=== PATIENT | male | born 1990 | race Caucasian/White ===

== ENCOUNTER 2017-01-11 19:21 | Emergency (ER) | payer MEDICAID ==
[~2017-01-11] VITALS: Ht 170.2 cm; Wt 66.0 kg
[2017-01-11 22:00] VITALS: BP 110/71
[2017-01-11 22:00] LABS: CLARITY URINE TURBID (CLEAR); COLOR URINE DARK YELLOW (YELLOW); GLUCOSE URINE NEGATIVE (NEGATIVE); KETONES URINE TRACE (NEGATIVE); LEUKOCYTE ESTERASE URINE NEGATIVE (NEGATIVE); NITRITE URINE NEGATIVE (NEGATIVE); OCCULT BLOOD URINE NEGATIVE (NEGATIVE); PROTEIN URINE 2+ (NEGATIVE); SPECIFIC GRAVITY URINE 1.028 (1.005-1.030)
== END 2017-01-11 22:35 | disposition left against medical advice (07) ==
LOC: ER 21:40
DX: M54.5 Low back pain (principal); R11.2 Nausea with vomiting, unspecified; F17.200 Nicotine dependence, unspecified, uncomplicated
CPT/HCPCS: 81001; 87086; 99284; Z7610

== ENCOUNTER 2018-03-12 17:52 | Emergency (ER) | payer MEDICAID, MEDICARE ==
[~2018-03-12] VITALS: Ht 167.6 cm; Wt 69.0 kg
[2018-03-12] MEDS ORDERED: SODIUM CHLORIDE 0.9% 1,000 ML IV ONE (19:22)
[2018-03-12] MEDS ORDERED: ACETAMINOPHEN 325MG TABLET PO STA (19:22)
[2018-03-12] MEDS ORDERED: KETOROLAC 15MG/ML VIAL IV ONE (19:30)
[2018-03-12] MEDS ORDERED: PIPERACILLIN/TAZ 3.375G PREMIX 50 ML IV ONE (19:30)
[2018-03-12] MEDS ORDERED: VANCOMYCIN 1 G PREMIX 200 ML IV ONE (19:30)
[2018-03-12 20:24] LABS: CHLORIDE 94 mEq/L (98-107); HEMATOCRIT. 29.8 % (42.0-52.0); HEMOGLOBIN. 10.1 g/dL (14.0-18.0); INR 1.2; MEAN CORPUSCULAR HEMOGLOBIN 30.2 pg (28.0-32.0); MEAN CORPUSCULAR VOLUME 89.5 fL (80.0-94.0); PLATELET 281 x1000/uL (130-400); PROTHROMBIN TIME 12.4 sec (9.1-11.1); RED BLOOD CELL COUNT 3.33 mill/uL (4.7-6.1); RED CELL DISTRIBUTION WIDTH 12.6 % (11.6-14.6)
[2018-03-12 20:53] LABS: CLARITY URINE CLEAR (CLEAR); COLOR URINE YELLOW (YELLOW); KETONES URINE NEGATIVE (NEGATIVE); LEUKOCYTE ESTERASE URINE NEGATIVE (NEGATIVE); NITRITE URINE NEGATIVE (NEGATIVE); OCCULT BLOOD URINE NEGATIVE (NEGATIVE); PH URINE 6.5 (4.5-8.0); PROTEIN URINE 1+ (NEGATIVE); SPECIFIC GRAVITY URINE 1.015 (1.005-1.030)
[2018-03-12] MEDS ORDERED: SODIUM CHLORIDE 0.9% 1000ML BAG (SEPSIS BOLUS) IV ONE (21:15)
[2018-03-12 21:44] LABS: PLATELET ESTIMATE NORMAL
[2018-03-12 22:33] LABS: BG BASE EXCESS -0.7 mmol/L (-2.0-2.0); BG CARBOXYHEMOGLOBIN 0.3 % (0.5-1.5); BG DEOXYHEMOGLOBIN 2.4 % (0.0-5.0); BG FRACTION INSPIRED OXYGEN 21; BG HCO3 ACT 23.1 mmol/L (22.0-26.0); BG METHEMOGLOBIN 0.3 % (0.0-1.5); BG OXYGEN SATURATION 97.6 % (92.0-98.5); BG PCO2 34.7 mmHg (35.0-45.0); BG PH 7.441 (7.350-7.450); BG PO2 109.3 mmHg (75.0-100.0); BG SAMPLE SITE RIGHT RADIAL; BG TOTAL HEMOGLOBIN 9.1 g/dL (12.0-18.0); BG VENT MODE ROOM AIR
[2018-03-12] MEDS ORDERED: DOXYCYCLINE HYCLATE 100MG CAPSULE PO ONE (22:45)
[2018-03-12 23:49] VITALS: BP 99/57
== END 2018-03-12 23:52 | disposition home or self-care (01) ==
LOC: ER 17:52
DX: R10.9 Unspecified abdominal pain (principal); R11.2 Nausea with vomiting, unspecified; R50.9 Fever, unspecified
CPT/HCPCS: 36415; 36600; 71045; 74176; 80053; 81003; 82375; 82805; 83605; 85025; 85610; 87040; 87804; 93005; 96361; 96365; 96368; 96375; 99284; J1885; J2543; J3370; J7030

== ENCOUNTER 2018-03-20 04:11 | Inpatient (IN) | payer MEDICARE ==
[~2018-03-20] VITALS: Ht 167.6 cm; Wt 60.5 kg
[2018-03-20 06:09] LABS: HEMATOCRIT. 27.6 % (42.0-52.0); HEMOGLOBIN. 9.5 g/dL (14.0-18.0); MEAN CORPUSCULAR HEMOGLOBIN 30.5 pg (28.0-32.0); MEAN CORPUSCULAR VOLUME 88.8 fL (80.0-94.0); MEAN PLATELET VOLUME 9.5 fl (7.4-10.4); PLATELET 263 x1000/uL (130-400); RED BLOOD CELL COUNT 3.11 mill/uL (4.7-6.1); RED CELL DISTRIBUTION WIDTH 12.8 % (11.6-14.6)
[2018-03-20 06:15] LABS: CHLORIDE 100 mEq/L (98-107)
[2018-03-20] MEDS ORDERED: SODIUM CHLORIDE 0.9% 1000ML BAG (SEPSIS BOLUS) IV ONE (06:45)
[2018-03-20] MEDS ORDERED: PIPERACILLIN/TAZ 3.375G PREMIX 50 ML IV ONE (06:45)
[2018-03-20] MEDS ORDERED: VANCOMYCIN 1 G PREMIX 200 ML IV ONE (06:45)
[2018-03-20 07:05] LABS: ETHANOL BLOOD < 10 mg/dL
[2018-03-20] MEDS ORDERED: IBUPROFEN 400MG TABLET PO ONE (07:30)
[2018-03-20 07:38] LABS: CLARITY URINE CLEAR (CLEAR); COLOR URINE YELLOW (YELLOW); KETONES URINE NEGATIVE (NEGATIVE); LEUKOCYTE ESTERASE URINE NEGATIVE (NEGATIVE); NITRITE URINE NEGATIVE (NEGATIVE); OCCULT BLOOD URINE NEGATIVE (NEGATIVE); PROTEIN URINE 1+ (NEGATIVE); SPECIFIC GRAVITY URINE 1.018 (1.005-1.030)
[2018-03-20 07:42] LABS: PLATELET ESTIMATE NORMAL
[2018-03-20 07:48] LABS: CREATINE KINASE 151 IU/L (39-308)
[2018-03-20 08:16] LABS: *AMPHETAMINES SCREEN URINE PRESUMTIVE POSITIVE (NEGATIVE); *BARBITURATES SCREEN URINE NEGATIVE (NEGATIVE)
[2018-03-20 08:17] LABS: *BENZODIAZEPINES SCREEN URINE NEGATIVE (NEGATIVE); *COCAINE SCREEN URINE NEGATIVE (NEGATIVE); CANNABINOID URINE SCREEN NEGATIVE (NEGATIVE); METHADONE URINE SCREEN NEGATIVE (NEGATIVE); OPIATES URINE SCREEN NEGATIVE (NEGATIVE); PHENCYCLIDINE URINE SCREEN NEGATIVE (NEGATIVE)
[2018-03-20] MEDS ORDERED: ONDANSETRON HCL 4MG/2ML INJ IV PRN (12:15)
[2018-03-20] MEDS ORDERED: DIPHENHYDRAMINE 50MG/ML VIAL IV PRN (12:15)
[2018-03-20] MEDS ORDERED: DOCUSATE SODIUM 100MG CAPSULE PO PRN (12:15)
[2018-03-20] MEDS ORDERED: ACETAMINOPHEN 650MG SUPP PR PRN (12:15)
[2018-03-20] MEDS ORDERED: IPRATROPIUM/ALBUTEROL 0.5-3(2.5)MG/3ML NEB INH PRN (12:15)
[2018-03-20] MEDS ORDERED: MAGNESIUM/ALUMINUM HYDROXIDE/SIMETHICONE 30ML UDC PO PRN (12:15)
[2018-03-20] MEDS ORDERED: ACETAMINOPHEN 325MG TABLET PO PRN (12:15)
[2018-03-20] MEDS ORDERED: NA PHOS,M-B/NA PHOS,DI-BA ENEMA 118ML PR PRN (12:15)
[2018-03-20] MEDS ORDERED: HYDROCODONE/ACETAMINOPHEN 5/325MG TABLET PO PRN (12:15)
[2018-03-20] MEDS ORDERED: PIPERACILLIN/TAZ 3.375G PREMIX 50 ML IV SCH ×2 (12:15→16:00)
[2018-03-20] MEDS ORDERED: CLONIDINE 0.1MG TABLET PO PRN (12:15)
[2018-03-20 14:30] VITALS: BP 92/43
[2018-03-20] MEDS ORDERED: POTASSIUM CHLORIDE 20MEQ TABLET SR PO SCH (15:00)
[2018-03-20] MEDS ORDERED: AZITHROMYCIN 250 MG TABLET PO SCH (15:00)
[2018-03-20] MEDS: PANTOPRAZOLE SODIUM 40 MG/VIAL IV SCH (15:35)
[2018-03-20] MEDS: ENOXAPARIN 40MG/0.4ML SYR SUBCUT SCH (15:35)
[2018-03-20 16:00] VITALS: BP 90/63
[2018-03-20] MEDS ORDERED: SODIUM CHLORIDE 0.9% 1,000 ML IV ONE ×2 (16:30)
[2018-03-20 17:12] LABS: BG BASE EXCESS -1.3 mmol/L (-2.0-2.0); BG CARBOXYHEMOGLOBIN 0.3 % (0.5-1.5); BG DEOXYHEMOGLOBIN 2.3 % (0.0-5.0); BG FRACTION INSPIRED OXYGEN 28; BG HCO3 ACT 23.1 mmol/L (22.0-26.0); BG METHEMOGLOBIN 0.5 % (0.0-1.5); BG OXYGEN SATURATION 97.7 % (92.0-98.5); BG OXYHEMOGLOBIN 96.9 % (94.0-97.0); BG PCO2 37.3 mmHg (35.0-45.0); BG PO2 130.1 mmHg (75.0-100.0); BG SAMPLE SITE LEFT BRACHIAL; BG TOTAL HEMOGLOBIN 8.7 g/dL (12.0-18.0); BG VENT MODE NASAL CANNULA
[2018-03-20 18:11] VITALS: BP 91/56
[2018-03-20] MEDS ORDERED: AZITHROMYCIN 500 MG in DEXT 5% WATER 250 ML IV SCH (18:30)
[2018-03-20] MEDS: SODIUM CHLORIDE 0.45% 1,000 ML IV SCH (19:27)
[2018-03-20 20:00] VITALS: BP 102/64
[2018-03-20] MEDS: CEFTRIAXONE 1 G PREMIX 50 ML IV SCH (20:00)
[2018-03-20] MEDS ORDERED: CEFTRIAXONE 1,000 MG in DEXTROSE 5% WATER 50 ML IV SCH (20:00)
[2018-03-20] MEDS: AZITHROMYCIN 500 MG in DEXT 5% WATER 250 ML IV SCH (21:00)
[2018-03-20] MEDS: TRAMADOL 50MG TABLET PO PRN (21:57)
[2018-03-20] MEDS ORDERED: VANCOMYCIN 1500MG in DEXTROSE 5% WATER 250ML IV SCH (22:00)
[2018-03-20] MEDS: GUAIFENESIN 200MG/10ML SUGAR FREE UDC PO PRN (22:35)
[2018-03-20] MEDS: LORAZEPAM 0.5MG TABLET PO PRN (22:35)
[2018-03-21] VITALS (7 sets, daily range): BP systolic 85–110; BP diastolic 40–69
[2018-03-21] MEDS: IPRATROPIUM/ALBUTEROL 0.5-3(2.5)MG/3ML NEB INH SCH ×4 (01:00→21:51)
[2018-03-21] MEDS: LORAZEPAM 0.5MG TABLET PO PRN (03:25)
[2018-03-21] MEDS: GUAIFENESIN 200MG/10ML SUGAR FREE UDC PO PRN (03:25)
[2018-03-21] MEDS: TRAMADOL 50MG TABLET PO PRN (03:26)
[2018-03-21] MEDS ORDERED: AZITHROMYCIN 500 MG in DEXT 5% WATER 250 ML IV SCH (06:00)
[2018-03-21] MEDS: PANTOPRAZOLE SODIUM 40 MG/VIAL IV SCH (08:17)
[2018-03-21] MEDS: IBUPROFEN 200MG TABLET PO PRN ×2 (08:18→21:26)
[2018-03-21] MEDS: ENOXAPARIN 40MG/0.4ML SYR SUBCUT SCH (08:18)
[2018-03-21 09:50] LABS: BASOPHILS % 0.3 % (0.0-2.0); EOSINOPHILS % 0.4 % (0.0-5.0); HEMATOCRIT. 24.6 % (42.0-52.0); HEMOGLOBIN. 8.3 g/dL (14.0-18.0); LYMPHOCYTES % 10.3 % (20.0-50.0); MEAN CORPUSCULAR HEMOGLOBIN 30.3 pg (28.0-32.0); MEAN CORPUSCULAR VOLUME 89.3 fL (80.0-94.0); MEAN PLATELET VOLUME 10.1 fl (7.4-10.4); MONOCYTES % 14.3 % (2.0-8.0); NEUTROPHILS % 74.7 % (40.0-76.0); PLATELET 229 x1000/uL (130-400); RED BLOOD CELL COUNT 2.75 mill/uL (4.7-6.1); RED CELL DISTRIBUTION WIDTH 12.7 % (11.6-14.6)
[2018-03-21 10:22] LABS: CHLORIDE 105 mEq/L (98-107)
[2018-03-21 10:31] LABS: LDL CHOLESTEROL 52 mg/dL (5-100)
[2018-03-21 10:32] LABS: HDL CHOLESTEROL 22 mg/dL (40-59); T4 FREE 1.05 ng/dL (0.76-1.46)
[2018-03-21] MEDS: SODIUM CHLORIDE 0.45% 1,000 ML IV SCH (14:53)
[2018-03-21] MEDS: CEFTRIAXONE 1 G PREMIX 50 ML IV SCH (21:09)
[2018-03-21] MEDS: AZITHROMYCIN 500 MG in DEXT 5% WATER 250 ML IV SCH (21:56)
[2018-03-22 00:21] VITALS: BP 93/41
[2018-03-22] MEDS: IPRATROPIUM/ALBUTEROL 0.5-3(2.5)MG/3ML NEB INH SCH ×2 (03:52→22:15)
[2018-03-22] MEDS: SODIUM CHLORIDE 0.45% 1,000 ML IV SCH (06:18)
[2018-03-22 09:24] LABS: HEMATOCRIT. 25.8 % (42.0-52.0); HEMOGLOBIN. 8.7 g/dL (14.0-18.0); MEAN CORPUSCULAR HEMOGLOBIN 29.9 pg (28.0-32.0); MEAN CORPUSCULAR VOLUME 88.5 fL (80.0-94.0); MEAN PLATELET VOLUME 10.3 fl (7.4-10.4); PLATELET 255 x1000/uL (130-400); RED BLOOD CELL COUNT 2.91 mill/uL (4.7-6.1); RED CELL DISTRIBUTION WIDTH 12.8 % (11.6-14.6)
[2018-03-22] MEDS: PANTOPRAZOLE SODIUM 40 MG/VIAL IV SCH (09:27)
[2018-03-22] MEDS: ENOXAPARIN 40MG/0.4ML SYR SUBCUT SCH ×2 (09:27→09:36)
[2018-03-22 09:37] LABS: CHLORIDE 102 mEq/L (98-107)
[2018-03-22 10:57] VITALS: BP 107/55
[2018-03-22 14:19] LABS: HIV 1 ABS Positive (Negative); HIV 2 ABS Negative (Negative); HIV SCREEN 4G Reactive (Non Reactive); INTERPRETATION HIV-1 Positive (.)
[2018-03-22 14:53] LABS: PLATELET ESTIMATE NORMAL
[2018-03-22 15:30] VITALS: BP 94/42
[2018-03-22] MEDS: IBUPROFEN 200MG TABLET PO PRN (15:50)
[2018-03-22] MEDS ORDERED: FLUCONAZOLE 400MG/200ML BAG 200 ML IV SCH (16:30)
[2018-03-22] MEDS: PREDNISONE 20MG TABLET PO SCH (17:56)
[2018-03-22] MEDS: SODIUM CHLORIDE 0.9% 1,000 ML IV SCH (17:57)
[2018-03-22] MEDS ORDERED: WATER IV SCH (18:00)
[2018-03-22] MEDS ORDERED: DEXT 5% IV SCH (18:00)
[2018-03-22] MEDS ORDERED: SULFAMETHOXAZOLE IV SCH (18:00)
[2018-03-22] MEDS ORDERED: TRIMETHOPRIM IV SCH (18:00)
[2018-03-22 20:00] VITALS: BP 95/55
[2018-03-22] MEDS: CEFTRIAXONE 1 G PREMIX 50 ML IV SCH (20:42)
[2018-03-22] MEDS: AZITHROMYCIN 500 MG in DEXT 5% WATER 250 ML IV SCH (21:45)
[2018-03-22 23:58] VITALS: BP 92/49
[2018-03-23] MEDS: IPRATROPIUM/ALBUTEROL 0.5-3(2.5)MG/3ML NEB INH SCH ×3 (02:41→21:00)
[2018-03-23] MEDS: SODIUM CHLORIDE 0.9% 1,000 ML IV SCH ×2 (03:04→14:01)
[2018-03-23 04:15] VITALS: BP 98/52
[2018-03-23 07:41] LABS: HEMATOCRIT. 27.2 % (42.0-52.0); HEMOGLOBIN. 9.1 g/dL (14.0-18.0); MEAN CORPUSCULAR HEMOGLOBIN 29.7 pg (28.0-32.0); MEAN CORPUSCULAR VOLUME 88.4 fL (80.0-94.0); MEAN PLATELET VOLUME 10.4 fl (7.4-10.4); PLATELET 274 x1000/uL (130-400); RED BLOOD CELL COUNT 3.07 mill/uL (4.7-6.1)
[2018-03-23 07:52] LABS: CHLORIDE 107 mEq/L (98-107)
[2018-03-23 08:00] VITALS: BP 89/48
[2018-03-23] MEDS: PREDNISONE 20MG TABLET PO SCH ×2 (08:32→18:14)
[2018-03-23] MEDS: PANTOPRAZOLE SODIUM 40 MG/VIAL IV SCH (08:32)
[2018-03-23] MEDS: WATER IV SCH ×2 (09:30→18:14)
[2018-03-23] MEDS: TRIMETHOPRIM IV SCH ×2 (09:30→18:14)
[2018-03-23] MEDS: DEXT 5% IV SCH ×2 (09:30→18:14)
[2018-03-23] MEDS: SULFAMETHOXAZOLE IV SCH ×2 (09:30→18:14)
[2018-03-23 12:00] VITALS: BP 95/49
[2018-03-23 15:45] LABS: PLATELET ESTIMATE NORMAL
[2018-03-23 16:15] VITALS: BP 88/43
[2018-03-23] MEDS: CEFTRIAXONE 1 G PREMIX 50 ML IV SCH (21:14)
[2018-03-24] VITALS: BP 99/88
[2018-03-24] MEDS: SODIUM CHLORIDE 0.9% 1,000 ML IV SCH
[2018-03-24] MEDS: DEXT 5%/0.45% NACL KCL 20MEQ/L 1,000 ML IV SCH ×3 (01:00→15:43)
[2018-03-24] MEDS: IPRATROPIUM/ALBUTEROL 0.5-3(2.5)MG/3ML NEB INH SCH ×4 (02:08→20:40)
[2018-03-24] MEDS: WATER IV SCH ×3 (02:58→18:19)
[2018-03-24] MEDS: TRIMETHOPRIM IV SCH ×3 (02:58→18:19)
[2018-03-24] MEDS: SULFAMETHOXAZOLE IV SCH ×3 (02:58→18:19)
[2018-03-24] MEDS: DEXT 5% IV SCH ×3 (02:58→18:19)
[2018-03-24 04:00] VITALS: BP 123/52
[2018-03-24 05:54] LABS: HEMATOCRIT 25.8 % (42.0-52.0); HEMOGLOBIN 8.7 g/dL (14.0-18.0); MEAN CORPUSCULAR HEMOGLOBIN 29.9 pg (28.0-32.0); MEAN CORPUSCULAR VOLUME 88.9 fL (80.0-94.0); PLATELET 295 x1000/uL (130-400); RED CELL DISTRIBUTION WIDTH 12.9 % (11.6-14.6)
[2018-03-24 06:16] LABS: CHLORIDE 108 mEq/L (98-107)
[2018-03-24 08:00] VITALS: BP 102/58
[2018-03-24] MEDS ORDERED: EPINEPHRINE 1:1000 1 MG/ML AMP ONE (08:34)
[2018-03-24] MEDS ORDERED: TETRACAINE/BENZOCAINE/BUTAMBEN 20 GM SPRAY MM ONE (08:36)
[2018-03-24 09:06] LABS: ABSOLUTE LYMPHOCYTES 0.3 x10E3/uL (0.7-3.1); ABSOLUTE MONOCYTES 0.5 x10E3/uL (0.1-0.9); BASOPHILS 0 % (Not Estab.); HEMATOCRIT 26.2 % (37.5-51.0); HEMOGLOBIN 8.8 g/dL (13.0-17.7); IMMATURE GRANULOCYTES 1 % (Not Estab.); LYMPHOCYTES 11 % (Not Estab.); MEAN CORPUSCULAR HEMOGLOBIN 29.7 pg (26.6-33.0); MEAN CORPUSCULAR HGB CONC. 33.6 g/dL (31.5-35.7); MEAN CORPUSCULAR VOLUME 89 fL (79-97); MONOCYTES 19 % (Not Estab.); NEUTROPHILS 69 % (Not Estab.); PLATELETS 302 x10E3/uL (150-379); RBC 2.96 x10E6/uL (4.14-5.80); RED CELL DISTRIBUTION WIDTH 13.2 % (12.3-15.4); WBC 2.9 x10E3/uL (3.4-10.8)
[2018-03-24] MEDS ORDERED: NEOSTIGMINE METHYLSULFATE 1MG/ML 10 ML VIAL ONE (09:40)
[2018-03-24] MEDS ORDERED: FENTANYL CITRATE/PF 50MCG/ML 2ML VIAL ONE (09:40)
[2018-03-24] MEDS ORDERED: MIDAZOLAM HCL 2 MG/2 ML VIAL ONE (09:40)
[2018-03-24] MEDS ORDERED: PROPOFOL 200MG/20ML VIAL IV ONE ×3 (09:40→10:05)
[2018-03-24] MEDS ORDERED: GLYCOPYRROLATE 0.2 MG/ML 2ML VIAL ONE (09:40)
[2018-03-24] MEDS ORDERED: ROCURONIUM BROMIDE 10MG/ML VIAL 5ML IV ONE (09:40)
[2018-03-24] MEDS ORDERED: PHENYLEPHRINE HCL 10 MG/ML 1ML (IV VIAL) IV ONE (09:41)
[2018-03-24] MEDS ORDERED: SODIUM CHLORIDE 0.9% 10ML VIAL ONE (09:41)
[2018-03-24] MEDS ORDERED: METOCLOPRAMIDE HCL 10MG/2ML VIAL ONE (09:41)
[2018-03-24] MEDS ORDERED: LIDOCAINE HCL/PF 1% 10 MG/ML 5ML VIAL ONE (09:41)
[2018-03-24] MEDS ORDERED: CEFAZOLIN SODIUM 1000MG/VIAL ONE (09:41)
[2018-03-24] MEDS ORDERED: SUCCINYLCHOLINE CHLORIDE 200MG/10ML IV ONE (09:41)
[2018-03-24] MEDS ORDERED: ONDANSETRON HCL 4MG/2ML INJ ONE (09:41)
[2018-03-24] MEDS ORDERED: EPHEDRINE SULFATE 50MG/ML VIAL ONE (09:41)
[2018-03-24 12:00] VITALS: BP 98/57
[2018-03-24] MEDS: PANTOPRAZOLE SODIUM 40 MG/VIAL IV SCH (12:33)
[2018-03-24] MEDS: PREDNISONE 20MG TABLET PO SCH ×2 (12:33→18:19)
[2018-03-24] MEDS: ENOXAPARIN 40MG/0.4ML SYR SUBCUT SCH (12:34)
[2018-03-24 14:20] LABS: % CD 3 POS. LYMPHOCYTES 63.7 % (57.5-86.2); % CD 4 POS. LYMPHOCYTES 2.1 % (30.8-58.5); % CD 8 POS. LYMPH 58.8 % (12.0-35.5); ABSOLUTE CD 3 191 /uL (622-2402); ABSOLUTE CD 4 HELPER 6 /uL (359-1519); ABSOLUTE CD 8 SUPPRESSOR 176 /uL (109-897); CD4/CD8 RATIO 0.04 (0.92-3.72)
[2018-03-24 16:00] VITALS: BP 90/44
[2018-03-24] MEDS ORDERED: LORAZEPAM 0.5MG TABLET PO PRN (16:15)
[2018-03-24] MEDS: CEFTRIAXONE 1 G PREMIX 50 ML IV SCH (20:00)
[2018-03-24 20:30] VITALS: BP 103/49
[2018-03-25] VITALS: BP 107/52
[2018-03-25] MEDS: IPRATROPIUM/ALBUTEROL 0.5-3(2.5)MG/3ML NEB INH SCH ×3 (02:30→11:58)
[2018-03-25] MEDS: DEXT 5%/0.45% NACL KCL 20MEQ/L 1,000 ML IV SCH ×3 (06:00→20:22)
[2018-03-25 08:00] VITALS: BP 110/54
[2018-03-25] MEDS: SULFAMETHOXAZOLE IV SCH ×4 (08:17→16:58)
[2018-03-25] MEDS: TRIMETHOPRIM IV SCH ×4 (08:17→16:58)
[2018-03-25] MEDS: WATER IV SCH ×4 (08:17→16:58)
[2018-03-25] MEDS: DEXT 5% IV SCH ×4 (08:17→16:58)
[2018-03-25] MEDS: PREDNISONE 20MG TABLET PO SCH ×2 (08:18→16:58)
[2018-03-25] MEDS: FAMOTIDINE 20MG/2ML VIAL IV SCH ×2 (08:18→20:23)
[2018-03-25] MEDS: ENOXAPARIN 40MG/0.4ML SYR SUBCUT SCH (08:21)
[2018-03-25] MEDS: GUAIFENESIN 200MG/10ML SUGAR FREE UDC PO PRN (09:34)
[2018-03-25 12:00] VITALS: BP 110/56
[2018-03-25 15:19] LABS: HEMATOCRIT 25.9 % (42.0-52.0); HEMOGLOBIN 8.8 g/dL (14.0-18.0); MEAN CORPUSCULAR HEMOGLOBIN 30.1 pg (28.0-32.0); MEAN CORPUSCULAR VOLUME 87.9 fL (80.0-94.0); PLATELET 335 x1000/uL (130-400); RED BLOOD CELL COUNT 2.94 mill/uL (4.7-6.1); RED CELL DISTRIBUTION WIDTH 12.8 % (11.6-14.6)
[2018-03-25 15:27] LABS: CHLORIDE 107 mEq/L (98-107)
[2018-03-25 15:53] LABS: HEPATITIS B SURFACE ANTIGEN NEGATIVE
[2018-03-25 16:00] VITALS: BP 101/43
[2018-03-25 20:00] VITALS: BP 105/55
[2018-03-25] MEDS: CEFTRIAXONE 1 G PREMIX 50 ML IV SCH (20:22)
[2018-03-25] MEDS: TEMAZEPAM 15MG CAPSULE PO PRN (22:09)
[2018-03-26] VITALS: BP 100/57
[2018-03-26] MEDS: SULFAMETHOXAZOLE IV SCH ×3 (01:15→17:35)
[2018-03-26] MEDS: TRIMETHOPRIM IV SCH ×3 (01:15→17:35)
[2018-03-26] MEDS: WATER IV SCH ×3 (01:15→17:35)
[2018-03-26] MEDS: DEXT 5% IV SCH ×3 (01:15→17:35)
[2018-03-26] MEDS: IPRATROPIUM/ALBUTEROL 0.5-3(2.5)MG/3ML NEB INH SCH ×5 (01:52→20:19)
[2018-03-26 04:00] VITALS: BP 102/50
[2018-03-26 07:09] LABS: HEMATOCRIT 25.9 % (42.0-52.0); HEMOGLOBIN 8.8 g/dL (14.0-18.0); MEAN CORPUSCULAR VOLUME 88.7 fL (80.0-94.0); PLATELET 322 x1000/uL (130-400); RED BLOOD CELL COUNT 2.93 mill/uL (4.7-6.1); RED CELL DISTRIBUTION WIDTH 13.1 % (11.6-14.6)
[2018-03-26 07:20] LABS: CHLORIDE 107 mEq/L (98-107)
[2018-03-26 08:00] VITALS: BP 107/58
[2018-03-26] MEDS: ENOXAPARIN 40MG/0.4ML SYR SUBCUT SCH ×2 (09:00→09:16)
[2018-03-26] MEDS: PREDNISONE 20MG TABLET PO SCH ×2 (09:09→17:34)
[2018-03-26] MEDS: FAMOTIDINE 20MG/2ML VIAL IV SCH ×2 (09:10→20:58)
[2018-03-26 11:53] VITALS: BP 101/51
[2018-03-26 16:00] VITALS: BP 100/50
[2018-03-26 20:02] VITALS: BP 104/53
[2018-03-26] MEDS: CEFTRIAXONE 1 G PREMIX 50 ML IV SCH (20:58)
[2018-03-26] MEDS: TEMAZEPAM 15MG CAPSULE PO PRN (21:02)
[2018-03-27 00:39] VITALS: BP 112/63
[2018-03-27] MEDS: DEXT 5% IV SCH ×2 (01:05→10:43)
[2018-03-27] MEDS: WATER IV SCH ×2 (01:05→10:43)
[2018-03-27] MEDS: SULFAMETHOXAZOLE IV SCH ×2 (01:05→10:43)
[2018-03-27] MEDS: DEXT 5%/0.45% NACL KCL 20MEQ/L 1,000 ML IV SCH (01:05)
[2018-03-27] MEDS: TRIMETHOPRIM IV SCH ×2 (01:05→10:43)
[2018-03-27 04:00] VITALS: BP 110/52
[2018-03-27 07:47] VITALS: BP 105/56
[2018-03-27] MEDS: FAMOTIDINE 20MG/2ML VIAL IV SCH (08:19)
[2018-03-27] MEDS: PREDNISONE 20MG TABLET PO SCH (08:19)
[2018-03-27] MEDS: IPRATROPIUM/ALBUTEROL 0.5-3(2.5)MG/3ML NEB INH SCH (10:46)
[2018-03-27 12:00] VITALS: BP 118/58
[2018-03-27] MEDS ORDERED: SULFAMETHOXAZOLE/TRIMETHOPRIM 800/160MG TABLET PO SCH (22:00)
[2018-03-28] MEDS ORDERED: PREDNISONE 20MG TABLET PO SCH (07:50)
[2018-04-02] MEDS ORDERED: PREDNISONE 20MG TABLET PO SCH (09:00)
== END 2018-03-27 17:33 | disposition left against medical advice (07) | DRG 890 ==
LOC: ER 04:11 → ENRESERV 08:50 → CANRESERV 08:50 → SUPCPDRO 11:21 → ENRESERV 12:55 → 6WST 12:55
PROVIDERS: ADMIT Internal Medicine; ATTEND Internal Medicine
PROC: 0B9D8ZX Drainage of Right Middle Lung Lobe, Via Natural or Artificial Opening Endoscopic, Diagnostic (ICD-10-PCS; principal; 2018-03-24)
PROC: 0BBF8ZX Excision of Right Lower Lung Lobe, Via Natural or Artificial Opening Endoscopic, Diagnostic (ICD-10-PCS; 2018-03-24)
PROC: 0BBL8ZX Excision of Left Lung, Via Natural or Artificial Opening Endoscopic, Diagnostic (ICD-10-PCS; 2018-03-24)
DX: B20 Human immunodeficiency virus [HIV] disease (principal); A41.9 Sepsis, unspecified organism; B59 Pneumocystosis; E43 Unspecified severe protein-calorie malnutrition; J84.9 Interstitial pulmonary disease, unspecified; A37.91 Whooping cough, unspecified species with pneumonia; E88.09 Other disorders of plasma-protein metabolism, not elsewhere classified; E87.6 Hypokalemia; R80.9 Proteinuria, unspecified; R74.0 Nonspecific elevation of levels of transaminase and lactic acid dehydrogenase [LDH]; Z53.21 Procedure and treatment not carried out due to patient leaving prior to being seen by health care provider; D64.9 Anemia, unspecified; D72.819 Decreased white blood cell count, unspecified; F19.10 Other psychoactive substance abuse, uncomplicated; T36.8X5A Adverse effect of other systemic antibiotics, initial encounter; L27.0 Generalized skin eruption due to drugs and medicaments taken internally; Y92.238 Other place in hospital as the place of occurrence of the external cause; Z91.19 Patient's noncompliance with other medical treatment and regimen; Z87.891 Personal history of nicotine dependence; Z88.6 Allergy status to analgesic agent; Z88.1 Allergy status to other antibiotic agents; Z87.01 Personal history of pneumonia (recurrent); Z87.442 Personal history of urinary calculi; Z87.440 Personal history of urinary (tract) infections; Z68.21 Body mass index [BMI] 21.0-21.9, adult
CPT/HCPCS: 36415; 36600; 71045; 71250; 76000; 80048; 80061; 80305; 82375; 82550; 82805; 83605; 83615; 83880; 84145; 84439; 84443; 84484; 85027; 85379; 85651; 86331; 86359; 86360; 86602; 86606; 86635; 86671; 86701; 86702; 86738; 86803; 87070; 87075; 87116; 87340; 87389; 87449; 87804; 87899; 88108; 88305; 88312; 93005; 93306; 93970; 94640; 96365; 96366; 96368; 99291; C9113; G0482; J0330; J0456; J0690; J0696; J1200; J1450; J1650; J2250; J2370; J2405; J2543; J2704; J2710; J2765; J3010; J3370; J3490; J7030; J7060; J7512; J7620

== ENCOUNTER 2018-04-27 19:34 | Emergency (ER) | payer MEDICARE ==
[~2018-04-27] VITALS: Ht 170.2 cm; Wt 69.0 kg
[2018-04-27] MEDS ORDERED: IBUPROFEN 800MG TABLET PO ONE (21:00)
[2018-04-27] MEDS ORDERED: AMOXICILLIN/POTASSIUM CLAVULANATE 875/125MG TAB PO ONE (21:00)
[2018-04-27 21:54] VITALS: BP 122/70
== END 2018-04-27 21:55 | disposition home or self-care (01) ==
LOC: ER 20:43
DX: R51 Headache (principal); K04.7 Periapical abscess without sinus; R68.84 Jaw pain; F17.200 Nicotine dependence, unspecified, uncomplicated; Z88.3 Allergy status to other anti-infective agents; Z88.6 Allergy status to analgesic agent
CPT/HCPCS: 99283; 99406

== ENCOUNTER 2021-08-04 11:17 | Emergency (ER) | payer MEDICAID ==
[~2021-08-04] VITALS: Ht 170.2 cm; Wt 82.0 kg
[2021-08-04] MEDS ORDERED: MORPHINE SULFATE 4 MG/ML CPJ (NOT FOR IM USE) IV ONE (11:30)
[2021-08-04] MEDS ORDERED: ONDANSETRON HCL 4MG/2ML INJ IV ONE (11:30)
[2021-08-04 11:42] VITALS: BP 128/67
[2021-08-04 12:09] LABS: HEMATOCRIT. 40.9 % (42.0-52.0); MEAN CORPUSCULAR HEMOGLOBIN 32.1 pg (28.0-32.0); MEAN CORPUSCULAR VOLUME 93.8 fL (80.0-94.0); MEAN PLATELET VOLUME 9.8 fl (7.4-10.4); PLATELET 302 x1000/uL (130-400); RED BLOOD CELL COUNT 4.36 mill/uL (4.7-6.1); RED CELL DISTRIBUTION WIDTH 12.9 % (11.6-14.6)
[2021-08-04 12:10] LABS: CHLORIDE 105 mEq/L (98-107)
[2021-08-04 12:39] LABS: PLATELET ESTIMATE NORMAL
== END 2021-08-04 14:21 | disposition left against medical advice (07) ==
LOC: ER 11:17
DX: R10.32 Left lower quadrant pain (principal); Z93.0 Tracheostomy status; Z21 Asymptomatic human immunodeficiency virus [HIV] infection status; Z88.3 Allergy status to other anti-infective agents; Z88.6 Allergy status to analgesic agent
CPT/HCPCS: 36415; 80053; 83690; 85025; 96374; 96375; 99284; J2270; J2405